=== PATIENT | male | born 1940 | race Two or more races ===

== ENCOUNTER 2018-06-02 09:04 | Emergency (ER) | payer MEDICAID, OTHER ==
[~2018-06-02] VITALS: Ht 170.2 cm; Wt 79.0 kg
[~2018-06-02 09:04] MED LIST: AMLO5TAB16 PO; FAMO-1 PO; Lisinopril PO; MAGN400T6 PO; METF1000 PO
[2018-06-02 09:19] LABS: BASOPHILS % (AUTO) 0.3 % (0-1); EOSINOPHILS # (AUTO) 0.1 X10'3 (0-0.9); EOSINOPHILS % (AUTO) 2.3 % (0-6); HEMATOCRIT 37.8 % (42.0-52.0); HEMOGLOBIN 12.9 g/dl (14.0-17.9); LYMPHOCYTES % (AUTO) 36.4 % (21-51); MEAN CORPUSCULAR HEMOGLOBIN 33.6 PG (27.0-31.0); MEAN CORPUSCULAR HGB CONC 34.1 % (33.0-36.5); MEAN CORPUSCULAR VOLUME 98.7 FL (78-98); MEAN PLATELET VOLUME 7.7 FL (7.4-10.4); MONOCYTES # (AUTO) 0.6 X10'3 (0-0.9); MONOCYTES % (AUTO) 10.7 % (2-12); NEUTROPHILS # (AUTO) 2.7 X10'3 (1.8-7.7); NEUTROPHILS % (AUTO) 50.3 % (42-75); PLATELET COUNT 200 X10'3 (140-440); RED BLOOD COUNT 3.83 X10'6 (4.70-6.10); RED CELL DISTRIBUTION WIDTH 14.7 % (11.5-14.5); WHITE BLOOD COUNT 5.4 X10'3 (4.5-11.0)
[2018-06-02] MEDS ORDERED: ipratropium/albuterol 3ml nebule NEB ONE (09:20)
[2018-06-02 09:40] LABS: ALANINE AMINOTRANSFERASE 53 U/L (12-78); ALBUMIN 3.8 G/DL (3.4-5.0); ALKALINE PHOSPHATASE 66 IU/L (46-116); ANION GAP 8 (8-16); ASPARTATE AMINO TRANSFERASE 50 U/L (10-37); BILIRUBIN,TOTAL 0.4 MG/DL (0.1-1.0); BLOOD UREA NITROGEN 8 MG/DL (7-18); BUN/CREATININE RATIO 9.4 (5.4-32.0); CALCIUM 8.4 MG/DL (8.5-10.1); CHLORIDE 93 MMOL/L (99-107); CREATININE 0.85 MG/DL (0.60-1.10); GLUCOSE 116 MG/DL (70-104); POTASSIUM 4.4 MMOL/L (3.5-5.1); SODIUM 125 MMOL/L (135-145); TOTAL PROTEIN 7.6 G/DL (6.4-8.2); eGFR 87 ML/MIN
[2018-06-02 09:42] LABS: D-DIMER 1.79 MG/L FEU (0-0.50)
[2018-06-02] MEDS ORDERED: normal saline 1000ML IV soln IVB ONE ×2 (09:45)
[2018-06-02] MEDS ORDERED: iohexol 350MG/ML 100ml bottle IV ONE (09:52)
[2018-06-02 09:56] LABS: MAGNESIUM 1.2 MG/DL (1.5-2.4)
[2018-06-02] MEDS: magnesium 1gm/100ml D5W IVPB 100 ML IV SCH ×2 (11:29→12:21)
[2018-06-02] MEDS ORDERED: ALBU8.5H8 IH (11:32)
[2018-06-02 13:08] VITALS: BP 170/93
[2018-06-03] MEDS ORDERED: MESSAGE TO NURSING PO NR (10:00)
== END 2018-06-02 13:10 | disposition home or self-care (01) ==
LOC: ER 09:04
DX: E87.1 Hypo-osmolality and hyponatremia (principal); R06.00 Dyspnea, unspecified; R07.89 Other chest pain; I25.10 Atherosclerotic heart disease of native coronary artery without angina pectoris; E78.00 Pure hypercholesterolemia, unspecified; I10 Essential (primary) hypertension; E11.9 Type 2 diabetes mellitus without complications; Z88.6 Allergy status to analgesic agent; Z79.899 Other long term (current) drug therapy; Z87.891 Personal history of nicotine dependence
CPT/HCPCS: 36415; 71045; 71275; 80053; 83735; 83880; 84145; 84484; 85025; 85379; 93005; 94640; 94760; 96365; 96366; 99285; J7030; Q9967

== ENCOUNTER 2021-09-26 21:30 | Inpatient (IN) | payer MEDICAID ==
[~2021-09-26] VITALS: Ht 162.6 cm; Wt 77.0 kg
[~2021-09-26 21:30] MED LIST changes: +ALBU8.5H17 IH; +MAGN400T56 PO; -MAGN400T6 PO
[2021-09-26 22:12] LABS: BASOPHILS # (AUTO) 0.2 X10'3 (0-0.2); BASOPHILS % (AUTO) 1.9 % (0-1); EOSINOPHILS # (AUTO) 0.1 X10'3 (0-0.9); EOSINOPHILS % (AUTO) 1.2 % (0-6); HEMATOCRIT 27.9 % (42.0-52.0); HEMOGLOBIN 9.1 g/dl (14.0-17.9); LYMPHOCYTES # (AUTO) 2.9 X10'3 (1.1-4.8); LYMPHOCYTES % (AUTO) 33.2 % (21-51); MEAN CORPUSCULAR HGB CONC 32.4 g/dL (33.0-36.5); MEAN CORPUSCULAR VOLUME 89.3 FL (78-98); MEAN PLATELET VOLUME 8.6 FL (7.4-10.4); MONOCYTES # (AUTO) 0.6 X10'3 (0-0.9); MONOCYTES % (AUTO) 6.4 % (2-12); NEUTROPHILS # (AUTO) 5.1 X10'3 (1.8-7.7); NEUTROPHILS % (AUTO) 57.3 % (42-75); PLATELET COUNT 372 X10'3 (140-440); RED BLOOD COUNT 3.13 X10'6 (4.70-6.10); RED CELL DISTRIBUTION WIDTH 16.6 % (11.5-14.5); WHITE BLOOD COUNT 8.9 X10'3 (4.5-11.0)
[2021-09-26 22:16] LABS: ALANINE AMINOTRANSFERASE 25 U/L (12-78); ALBUMIN 3.5 G/DL (3.4-5.0); ALBUMIN/GLOBULIN RATIO 0.8 (1.1-1.5); ALKALINE PHOSPHATASE 69 IU/L (46-116); ANION GAP 8 (8-16); ASPARTATE AMINO TRANSFERASE 24 U/L (10-37); BILIRUBIN,TOTAL 0.3 MG/DL (0.1-1.0); BLOOD UREA NITROGEN 17 MG/DL (7-18); BUN/CREATININE RATIO 12.8 (5.4-32.0); CALCIUM 8.8 MG/DL (8.5-10.1); CHLORIDE 96 MMOL/L (99-107); CREATININE 1.33 MG/DL (0.60-1.10); GLUCOSE 138 MG/DL (70-104); SODIUM 135 MMOL/L (135-145); TOTAL CARBON DIOXIDE 31.3 MMOL/L (24-32); eGFR 52 ML/MIN
[2021-09-26 22:19] LABS: POTASSIUM 4.3 MMOL/L (3.5-5.1)
[2021-09-26] MEDS ORDERED: WARF-55 PO (22:29)
[2021-09-26] MEDS ORDERED: METF-437 PO (22:29)
[2021-09-26] MEDS ORDERED: FURO-149 PO (22:29)
[2021-09-26] MEDS ORDERED: iohexol 350MG/ML 100ml bottle IV ONE (22:37)
[2021-09-26 23:29] LABS: PARTIAL THROMBOPLASTIN TIME 36 SECONDS (22-32)
[2021-09-26] MEDS ORDERED: diltiazem 5mg/ml 5ml inj. IV ONE (23:45)
[2021-09-26] MEDS ORDERED: normal saline 1000ml 1,000 ML IV ONE (23:45)
[2021-09-27] MEDS ORDERED: diltiazem-NS 100mg/100ml 100 ML IV SCH (00:40)
[2021-09-27] MEDS ORDERED: pantoprazole IV 40 MG in dextrose 5%-water 100 ML IV ONE (00:40)
[2021-09-27] MEDS ORDERED: pantoprazole IV 80 MG in normal saline 100ml IV soln 100 ML IV ONE (00:40)
[2021-09-27] MEDS ORDERED: pantoprazole 40 MG vial IV ONE (00:45)
[2021-09-27] MEDS ORDERED: magnesium 2GM in 50ml NS 50 ML IV PRN (01:20)
[2021-09-27] MEDS ORDERED: acetaminophen 325mg tablet PO PRN ×2 (01:20)
[2021-09-27] MEDS ORDERED: glucagon, human recombinant 1mg kit SUBCUT PRN (01:20)
[2021-09-27] MEDS ORDERED: morphine 2 MG/ML inj. syringe IV PRN ×2 (01:20)
[2021-09-27] MEDS ORDERED: MESSAGE TO PHARMACY PO ONE (01:20)
[2021-09-27] MEDS ORDERED: dextrose 50%-water 50ml dispensing syringe IV PRN ×2 (01:20)
[2021-09-27] MEDS ORDERED: potassium Cl 20 mEq SR tablet PO PRN ×2 (01:20)
[2021-09-27] MEDS ORDERED: potassium CL 10mEq/100ml bag 100 ML IV PRN (01:20)
[2021-09-27] MEDS ORDERED: ondansetron/PF 4mg/2ml inj IV PRN (01:20)
[2021-09-27] MEDS ORDERED: HYDROcodone/acetaminophen 5mg/325mg tablet PO PRN (01:20)
[2021-09-27] MEDS ORDERED: dextrose ORAL solution 15 GM/59 ML bottle PO PRN ×2 (01:20)
[2021-09-27] MEDS ORDERED: magnesium 4gm in 100ml NS 100 ML IV PRN (01:20)
[2021-09-27] MEDS ORDERED: mag hydrox/Alum hydrox/simeth 30ml oral suspension PO PRN (01:20)
[2021-09-27] MEDS ORDERED: magnesium hydroxide 30ml (MOM) UD suspension PO PRN (01:20)
[2021-09-27] MEDS ORDERED: insulin Lispro (HumaLOG) vial - multi-dose SQ SCH (01:20)
--- NOTE | 2021-09-27 01:51 | NUR ---
Rosas sofia in [facility] - 09/27/21 at 0152 by ELICIA case report received from [facility]. case number is [id number]
[2021-09-27] MEDS: pantoprazole IV 40 MG in dextrose 5%-water 100 ML IV SCH ×2 (02:01→02:35)
[2021-09-27 03:49] LABS: HEMOGLOBIN A1C 7.7 % (4.5-6.2)
--- NOTE | 2021-09-27 07:34 | NUR ---
called [facility] to give report nurse finch is busy with other patient and will call me back.notified charge nurse lachelle.
[2021-09-27 07:58] LABS: MAGNESIUM 1.1 MG/DL (1.5-2.4); POTASSIUM 3.8 MMOL/L (3.5-5.1)
[2021-09-27 08:00] VITALS: BP 106/64
[2021-09-27] MEDS: K and/or MAG REPLACEMENT MC SCH ×2 (08:00→20:00)
[2021-09-27] MEDS ORDERED: lisinopril 20mg tablet PO SCH (08:00)
[2021-09-27] MEDS: docusate sod 100mg capsule PO SCH ×2 (08:00→20:20)
[2021-09-27] MEDS ORDERED: LISI2.5T14 PO (08:04)
[2021-09-27] MEDS ORDERED: lisinopril 2.5mg tablet PO SCH (08:05)
[2021-09-27] MEDS ORDERED: furosemide 40mg/4ml inj IV ONE (08:40)
[2021-09-27] MEDS ORDERED: diltiazem CD 180mg cap (once-daily) PO SCH (08:45)
[2021-09-27] MEDS: lisinopril 2.5mg tablet PO SCH (09:16)
[2021-09-27] MEDS: magnesium Cl slow-release 64mg tablet PO PRN (09:17)
[2021-09-27 11:00] VITALS: BP 90/42
[2021-09-27] MEDS ORDERED: metoprolol tartrate 1mg/ml inj IV ONE (13:35)
[2021-09-27] MEDS ORDERED: metoprolol succinate 25mg (24-HOUR) SR. Tablet PO ONE (13:35)
[2021-09-27] MEDS ORDERED: WARF1TAB83 PO (14:24)
[2021-09-27 15:00] VITALS: BP 102/62
[2021-09-27] MEDS ORDERED: thiamine 100mg/ml 2ml inj. IV ONE (15:30)
[2021-09-27] MEDS ORDERED: folic acid 1mg/0.2ml inj IV ONE (15:30)
[2021-09-27] MEDS ORDERED: LORazepam 1 MG tablet PO PRN (15:30)
[2021-09-27] MEDS ORDERED: LORazepam 2 mg/ml vial IV PRN (15:30)
[2021-09-27] MEDS: folic acid 1mg tablet PO SCH (15:38)
[2021-09-27] MEDS: thiamine 100mg tablet PO SCH (17:50)
[2021-09-27] MEDS: multivitamins, therapeutics tablet PO SCH (17:50)
[2021-09-27 18:00] VITALS: BP 91/52
--- NOTE | 2021-09-27 18:30 | NUR ---
Rounding Pt in bed eating dinner assisted by family member who is presents at bed side. Pt and family denied any complaints at this time. Vital signs stable on monitor. Plan of care verbalized to pt and family.
[2021-09-27] MEDS: furosemide 40mg/4ml inj IV SCH (20:20)
[2021-09-27] MEDS ORDERED: warfarin 1mg tablet PO ONE (21:00)
[2021-09-27] MEDS: insulin glargine (Lantus) pen - multi-dose SQ SCH (21:00)
[2021-09-27] MEDS ORDERED: warfarin 2.5mg tablet PO SCH (21:00)
[2021-09-27 22:00] VITALS: BP 90/43
[2021-09-27 23:59] VITALS: BP 102/70
[2021-09-28 02:00] VITALS: BP 91/54
[2021-09-28 06:00] VITALS: BP 95/47
[2021-09-28 06:02] LABS: BASOPHILS % (AUTO) 0.4 % (0-1); EOSINOPHILS # (AUTO) 0.1 X10'3 (0-0.9); EOSINOPHILS % (AUTO) 0.9 % (0-6); HEMATOCRIT 23.8 % (42.0-52.0); LYMPHOCYTES # (AUTO) 2.7 X10'3 (1.1-4.8); LYMPHOCYTES % (AUTO) 36.3 % (21-51); MEAN CORPUSCULAR HEMOGLOBIN 29.6 PG (27.0-31.0); MEAN CORPUSCULAR HGB CONC 33.7 g/dL (33.0-36.5); MEAN CORPUSCULAR VOLUME 87.8 FL (78-98); MEAN PLATELET VOLUME 8.2 FL (7.4-10.4); MONOCYTES # (AUTO) 0.7 X10'3 (0-0.9); NEUTROPHILS # (AUTO) 3.9 X10'3 (1.8-7.7); NEUTROPHILS % (AUTO) 52.4 % (42-75); PLATELET COUNT 286 X10'3 (140-440); RED BLOOD COUNT 2.71 X10'6 (4.70-6.10); RED CELL DISTRIBUTION WIDTH 16.9 % (11.5-14.5); WHITE BLOOD COUNT 7.5 X10'3 (4.5-11.0)
[2021-09-28 06:11] LABS: ALANINE AMINOTRANSFERASE 68 U/L (12-78); ALBUMIN 3.1 G/DL (3.4-5.0); ALBUMIN/GLOBULIN RATIO 0.8 (1.1-1.5); ALKALINE PHOSPHATASE 63 IU/L (46-116); AMYLASE 38 U/L (25-115); ANION GAP 4 (8-16); ASPARTATE AMINO TRANSFERASE 120 U/L (10-37); BILIRUBIN,TOTAL 0.5 MG/DL (0.1-1.0); BLOOD UREA NITROGEN 21 MG/DL (7-18); BUN/CREATININE RATIO 13.8 (5.4-32.0); CALCIUM 8.4 MG/DL (8.5-10.1); CHLORIDE 100 MMOL/L (99-107); CREATININE 1.52 MG/DL (0.60-1.10); GLUCOSE 126 MG/DL (70-104); LIPASE 69 U/L (73-393); MAGNESIUM 1.1 MG/DL (1.5-2.4); PHOSPHORUS 4.1 MG/DL (2.3-4.5); POTASSIUM 4.2 MMOL/L (3.5-5.1); SODIUM 136 MMOL/L (135-145); TOTAL CARBON DIOXIDE 32.4 MMOL/L (24-32); TOTAL PROTEIN 6.8 G/DL (6.4-8.2); eGFR 44 ML/MIN
--- NOTE | 2021-09-28 06:40 | NUR ---
Problems reprioritized. Patient report given, questions answered & plan of care reviewed with ADY Duque. Electrodes replaced and call bran given to pt. Resting comfortably in bed.
[2021-09-28] MEDS: furosemide 40mg/4ml inj IV SCH ×2 (08:00→20:44)
[2021-09-28] MEDS: K and/or MAG REPLACEMENT MC SCH ×2 (08:00→15:13)
[2021-09-28] MEDS ORDERED: metoprolol succinate 25mg (24-HOUR) SR. Tablet PO SCH (08:00)
[2021-09-28] MEDS: thiamine 100mg tablet PO SCH (08:00)
[2021-09-28] MEDS: docusate sod 100mg capsule PO SCH ×2 (08:00→20:44)
[2021-09-28] MEDS: folic acid 1mg tablet PO SCH (08:00)
[2021-09-28] MEDS: lisinopril 2.5mg tablet PO SCH (08:00)
--- NOTE | 2021-09-28 09:38 | NUR ---
Diabetes consult: Noted A1C 7.7 fair control and appropriate for age. DM ed not indicated at this time. Addendum: 09/28/21 at [address] Amended: Links added.
[2021-09-28 10:00] VITALS: BP 121/63
[2021-09-28] MEDS: multivitamins, therapeutics tablet PO SCH (10:07)
[2021-09-28 14:00] VITALS: BP 124/75
--- NOTE | 2021-09-28 15:07 | NUR ---
WOUND INFECTION EDUCATION PROVIDED BY WOUND CARE 1. Patient instructed to call their primary doctor, or go the ED immediately if any of the following symptoms occur: * Increased pain in wound * Increase in drainage from the wound * Redness in the skin surrounding the wound * Warmth in the skin surrounding the wound * Bleeding from the wound * Temperature of 101 or greater 2. If any of these occur while in the hospital tell a nurse immediately. PRESSURE ULCER EDUCATION: DEFINITION: A pressure ulcer is an area of skin that breaks down when you stay in one position too long. The constant pressure against the skin reduces the blood flow to that area and the affected tissue dies. CAUSES: "Being bedridden or in a wheelchair "Fragile skin "Having a chronic condition, such as diabetes or vascular disease "Inability to move certain parts of your body without assistance "Older age "Incontinence of urine or stool SYMPTOMS: "A reddened area that DOES NOT turn white when pressed on - this can be the beginning of a pressure ulcer "A blister, deep sore or a crater - these can be advanced pressure ulcers FIRST AID: "Relieve the pressure on this area "Keep the area clean and dry "Call your primary doctor if you see any of the above symptoms "DO NOT massage the area "DO NOT use a donut shaped or ring shaped pillow- these actually interfere with the blood flow and cause complications PREVENTION: "Check for pressure ulcers everyday "Change position at least every two hours to relieve pressure "Use items that help relieve pressure- pillows, sheepskin, foam padding, and powders. "Keep skin clean and dry "Eat healthy well balanced meals "Exercise daily IF YOU SEE ANY OF THESE SYMPTOMS WHILE IN THE HOSPITAL - TELL YOUR NURSE IMMEDIATELY. IF YOU SEE ANY OF THESE SYMPTOMS WHILE AT HOME OR HAVE ANY QUESTIONS OR CONCERNS ABOUT PRESSURE ULCERS - CALL YOUR PRIMARY DOCTOR IMMEDIATELY. Addendum: 09/28/21 at 1507 by Marcella Boyce RN Amended: Links added.
[2021-09-28] MEDS: magnesium Cl slow-release 64mg tablet PO PRN (15:14)
[2021-09-28 18:00] VITALS: BP 119/76
--- NOTE | 2021-09-28 18:45 | NUR ---
Patient in room MED 317. I have received report from Diana GARSIA and had the opportunity to ask questions and assume patient care.
[2021-09-28] MEDS: insulin glargine (Lantus) pen - multi-dose SQ SCH (20:45)
[2021-09-28] MEDS ORDERED: warfarin 1mg tablet PO ONE (21:00)
[2021-09-28 22:00] VITALS: BP 126/78
[2021-09-29 02:00] VITALS: BP 133/89
--- NOTE | 2021-09-29 06:26 | NUR ---
Problems reprioritized. Patient report given, questions answered & plan of care reviewed with Angelica GARSIA.
[2021-09-29 06:28] LABS: BASOPHILS % (AUTO) 0.2 % (0-1); EOSINOPHILS # (AUTO) 0.1 X10'3 (0-0.9); EOSINOPHILS % (AUTO) 1.4 % (0-6); HEMATOCRIT 25.1 % (42.0-52.0); HEMOGLOBIN 8.5 g/dl (14.0-17.9); LYMPHOCYTES # (AUTO) 1.8 X10'3 (1.1-4.8); LYMPHOCYTES % (AUTO) 22.3 % (21-51); MEAN CORPUSCULAR HEMOGLOBIN 29.5 PG (27.0-31.0); MEAN CORPUSCULAR HGB CONC 33.9 g/dL (33.0-36.5); MEAN PLATELET VOLUME 8.3 FL (7.4-10.4); MONOCYTES # (AUTO) 0.8 X10'3 (0-0.9); MONOCYTES % (AUTO) 10.2 % (2-12); NEUTROPHILS # (AUTO) 5.3 X10'3 (1.8-7.7); NEUTROPHILS % (AUTO) 65.9 % (42-75); PLATELET COUNT 328 X10'3 (140-440); RED BLOOD COUNT 2.89 X10'6 (4.70-6.10); RED CELL DISTRIBUTION WIDTH 16.8 % (11.5-14.5); WHITE BLOOD COUNT 8.1 X10'3 (4.5-11.0)
--- NOTE | 2021-09-29 06:43 | NUR ---
Patient in room MED 317. I have received report from Cassia GARSIA and had the opportunity to ask questions and assume patient care.
[2021-09-29 06:44] VITALS: BP 130/78
[2021-09-29 06:58] LABS: ANION GAP 8 (8-16); BLOOD UREA NITROGEN 17 MG/DL (7-18); BUN/CREATININE RATIO 14.5 (5.4-32.0); CHLORIDE 98 MMOL/L (99-107); CREATININE 1.17 MG/DL (0.60-1.10); GLUCOSE 160 MG/DL (70-104); POTASSIUM 3.2 MMOL/L (3.5-5.1); SODIUM 136 MMOL/L (135-145); TOTAL CARBON DIOXIDE 30.1 MMOL/L (24-32)
[2021-09-29 06:59] LABS: ALANINE AMINOTRANSFERASE 126 U/L (12-78); ALBUMIN 3.1 G/DL (3.4-5.0); ALBUMIN/GLOBULIN RATIO 0.8 (1.1-1.5); ALKALINE PHOSPHATASE 68 IU/L (46-116); AMYLASE 41 U/L (25-115); ASPARTATE AMINO TRANSFERASE 137 U/L (10-37); BILIRUBIN,TOTAL 0.5 MG/DL (0.1-1.0); CALCIUM 8.4 MG/DL (8.5-10.1); LIPASE 64 U/L (73-393); MAGNESIUM 1.1 MG/DL (1.5-2.4); PHOSPHORUS 3.4 MG/DL (2.3-4.5); TOTAL PROTEIN 7.1 G/DL (6.4-8.2); eGFR 60 ML/MIN
[2021-09-29] MEDS: furosemide 40mg/4ml inj IV SCH (07:20)
[2021-09-29] MEDS: docusate sod 100mg capsule PO SCH (07:20)
[2021-09-29] MEDS: thiamine 100mg tablet PO SCH (07:21)
[2021-09-29] MEDS: multivitamins, therapeutics tablet PO SCH (07:21)
[2021-09-29] MEDS: lisinopril 2.5mg tablet PO SCH (07:22)
[2021-09-29] MEDS: folic acid 1mg tablet PO SCH (07:22)
[2021-09-29] MEDS: K and/or MAG REPLACEMENT MC SCH (08:00)
[2021-09-29] MEDS ORDERED: metoprolol succinate 25mg (24-HOUR) SR. Tablet PO SCH (08:00)
[2021-09-29] MEDS ORDERED: FOLI0.4T6 PO (09:21)
[2021-09-29] MEDS ORDERED: THIA50TA10 PO (09:21)
[2021-09-29] MEDS ORDERED: MULT-25 PO (09:21)
[2021-09-29] MEDS ORDERED: METO100T7 PO (09:21)
[2021-09-29] MEDS ORDERED: POTA-207 PO (09:23)
[2021-09-29 11:00] VITALS: BP 115/76
--- NOTE | 2021-09-29 15:15 | NUR ---
Pt with D/C orders, instructions given to daughter over phone, daughter will be in tosign papers and transport patient home. Pt in no distress, IV removed with canula intact.
--- NOTE | 2021-09-29 16:07 | NUR ---
Pt left via wheelchair, daughter, pt in no distress
[2021-09-29] MEDS ORDERED: warfarin 1mg tablet PO ONE (21:00)
== END 2021-09-29 15:55 | disposition home or self-care (01) | DRG 201 ==
LOC: ER 21:31 → UNDOADMIN 09-27 01:24 → ED HOLD 09-27 01:24 → MED 3N 09-27 08:10
PROVIDERS: ADMIT Internal Medicine; ATTEND Family Medicine
PROC: B32T1ZZ Computerized Tomography (CT Scan) of Left Pulmonary Artery using Low Osmolar Contrast (ICD-10-PCS; principal; 2021-09-26)
PROC: B3201ZZ Computerized Tomography (CT Scan) of Thoracic Aorta using Low Osmolar Contrast (ICD-10-PCS; 2021-09-26)
PROC: B32S1ZZ Computerized Tomography (CT Scan) of Right Pulmonary Artery using Low Osmolar Contrast (ICD-10-PCS; 2021-09-26)
DX: I48.0 Paroxysmal atrial fibrillation (principal); I50.21 Acute systolic (congestive) heart failure; E11.22 Type 2 diabetes mellitus with diabetic chronic kidney disease; Z95.1 Presence of aortocoronary bypass graft; I13.0 Hypertensive heart and chronic kidney disease with heart failure and stage 1 through stage 4 chronic kidney disease, or unspecified chronic kidney disease; N18.30 Chronic kidney disease, stage 3 unspecified; E78.00 Pure hypercholesterolemia, unspecified; F10.20 Alcohol dependence, uncomplicated; I25.10 Atherosclerotic heart disease of native coronary artery without angina pectoris; K92.2 Gastrointestinal hemorrhage, unspecified; Z20.822 Contact with and (suspected) exposure to COVID-19; Z87.891 Personal history of nicotine dependence; Z79.01 Long term (current) use of anticoagulants; Z79.899 Other long term (current) drug therapy
CPT/HCPCS: 36415; 71045; 71275; 80053; 82150; 82948; 83036; 83690; 83735; 83880; 84100; 84132; 84484; 85025; 85610; 85730; 87635; 93005; 93306; 99291; C9113; G0378; J1815; J1940; J3490; J7030; J7060; Q9967

== ENCOUNTER 2021-11-10 23:02 | Inpatient (IN) | payer MEDICAID ==
[~2021-11-10] VITALS: Ht 162.6 cm; Wt 85.2 kg
[~2021-11-10 23:02] MED LIST changes: -ALBU8.5H17 IH; -AMLO5TAB16 PO; +ASPI-1265 PO; +DILT180C87 PO; -FAMO-1 PO; +FOLI0.4T6 PO; +FURO-149 PO; +FURO-150 PO; +LISI2.5T14 PO; +LOP12.5T PO; -Lisinopril PO; -MAGN400T56 PO; +METF-437 PO; -METF1000 PO; +METO-467 PO; +WARF1TAB83 PO
--- NOTE | 2021-11-10 23:44 | NUR ---
PATIENT SEEN BY HIS REGULAR MD AT [facility]. HE REPORTED LEFT ARM DISCOMFORT, THE DOCTOR TOLD HIM TO COME TO ED IF WORSE. PATIENT EPIGASTRIC DISCOMFORT SINCE AROUND AROUND 0900 HOURS TODAY. PATIENT STATED LEFT ARM PAIN BEGAN AROUND 2200 HOURS TWO NIGHTS AGO. NAUSEA IS PRESNT. HX: A-FIB AND CORONARY STENTS.
[2021-11-11 01:15] LABS: BASOPHILS % (AUTO) 0.4 % (0-1); EOSINOPHILS % (AUTO) 0.1 % (0-6); HEMATOCRIT 26.6 % (42.0-52.0); HEMOGLOBIN 8.6 g/dl (14.0-17.9); LYMPHOCYTES # (AUTO) 1.5 X10'3 (1.1-4.8); LYMPHOCYTES % (AUTO) 21.6 % (21-51); MEAN CORPUSCULAR HEMOGLOBIN 26.7 PG (27.0-31.0); MEAN CORPUSCULAR HGB CONC 32.4 g/dL (33.0-36.5); MEAN CORPUSCULAR VOLUME 82.6 FL (78-98); MEAN PLATELET VOLUME 8.8 FL (7.4-10.4); MONOCYTES # (AUTO) 0.5 X10'3 (0-0.9); MONOCYTES % (AUTO) 7.5 % (2-12); NEUTROPHILS % (AUTO) 70.4 % (42-75); PLATELET COUNT 272 X10'3 (140-440); RED BLOOD COUNT 3.22 X10'6 (4.70-6.10); RED CELL DISTRIBUTION WIDTH 20.1 % (11.5-14.5); WHITE BLOOD COUNT 7.1 X10'3 (4.5-11.0)
[2021-11-11 01:36] LABS: CHLORIDE 98 MMOL/L (99-107); GLUCOSE 129 MG/DL (70-104); SODIUM 132 MMOL/L (135-145); TOTAL CARBON DIOXIDE 24.1 MMOL/L (24-32)
[2021-11-11 01:37] LABS: ALANINE AMINOTRANSFERASE 14 U/L (12-78); ALBUMIN 3.3 G/DL (3.4-5.0); ALBUMIN/GLOBULIN RATIO 0.8 (1.1-1.5); ALKALINE PHOSPHATASE 71 IU/L (46-116); ANION GAP 10 (8-16); ASPARTATE AMINO TRANSFERASE 21 U/L (10-37); BILIRUBIN,TOTAL 0.7 MG/DL (0.1-1.0); BLOOD UREA NITROGEN 34 MG/DL (7-18); BUN/CREATININE RATIO 19.1 (5.4-32.0); CALCIUM 8.5 MG/DL (8.5-10.1); CREATININE 1.78 MG/DL (0.60-1.10); TOTAL PROTEIN 7.6 G/DL (6.4-8.2); eGFR 37 ML/MIN
[2021-11-11] MEDS ORDERED: dextrose 50%-water 50ml dispensing syringe IV ONE (01:45)
[2021-11-11] MEDS ORDERED: sodium polystyrene sulfonate 15gm/60ml oral suspension PO ONE (01:45)
[2021-11-11] MEDS ORDERED: CALCIUM GLUC 1gm/50ml NACL,iso 50 ML IV PRN (01:45)
[2021-11-11] MEDS ORDERED: insulin regular, human 10 units/0.1 ml syringe IV ONE (01:45)
[2021-11-11] MEDS ORDERED: normal saline 1000ML IV soln IVB ONE (01:45)
[2021-11-11 01:59] LABS: ANISOCYTOSIS 3+; PLATELET ESTIMATE NORMAL
[2021-11-11 02:00] LABS: MICROCYTOSIS FEW; POLYCHROMASIA 1+; TEAR DROP CELLS FEW
[2021-11-11 02:02] LABS: TARGET CELLS FEW
[2021-11-11 02:11] LABS: D-DIMER 1.69 MG/L FEU (0-0.50)
[2021-11-11] MEDS ORDERED: magnesium hydroxide 30ml (MOM) UD suspension PO PRN (02:15)
[2021-11-11] MEDS ORDERED: mag hydrox/Alum hydrox/simeth 30ml oral suspension PO PRN (02:15)
[2021-11-11] MEDS ORDERED: ondansetron/PF 4mg/2ml inj IV PRN (02:15)
[2021-11-11] MEDS ORDERED: acetaminophen 325mg tablet PO PRN (02:15)
[2021-11-11] MEDS ORDERED: MESSAGE TO PHARMACY PO ONE (02:20)
[2021-11-11] MEDS ORDERED: dextrose ORAL solution 15 GM/59 ML bottle PO PRN ×2 (02:20)
[2021-11-11] MEDS ORDERED: dextrose 50%-water 50ml dispensing syringe IV PRN ×2 (02:20)
[2021-11-11] MEDS ORDERED: glucagon, human recombinant 1mg kit SUBCUT PRN (02:20)
[2021-11-11] MEDS ORDERED: insulin Lispro (HumaLOG) vial - multi-dose SQ SCH (02:20)
[2021-11-11] MEDS ORDERED: METO-395 PO (02:39)
--- NOTE | 2021-11-11 06:19 | NUR ---
pt given kayexalate and has had one episode of diarrhea. glucose is 79. no sob noted at this time.
--- NOTE | 2021-11-11 07:09 | NUR ---
Patient in room ED 9. I have received report from Wesley GARSIA and had the opportunity to ask questions and assume patient care.
[2021-11-11] MEDS: metoprolol succinate 25mg (24-HOUR) SR. Tablet PO SCH (08:45)
[2021-11-11] MEDS: diltiazem CD 180mg cap (once-daily) PO SCH (08:45)
[2021-11-11] MEDS: docusate sod 100mg capsule PO SCH ×2 (08:45→21:34)
[2021-11-11] MEDS: aspirin 81mg tab.chew PO SCH (08:45)
[2021-11-11] MEDS: furosemide 40mg tablet PO SCH (08:46)
[2021-11-11] MEDS: folic acid 0.4mg tablet PO SCH (10:53)
[2021-11-11] MEDS: furosemide 20MG tablet PO SCH (14:00)
--- NOTE | 2021-11-11 14:45 | NUR ---
Diabetes Consult: Noted A1C 7.7 09/26/21 and pt takes metformin at home per EMR. DM fair control and appropriate for age per ADA gridlines. DM ed not indicated at this time, will continue to monitor. Addendum: 11/11/21 at [address] Amended: Links added.
--- NOTE | 2021-11-11 14:46 | NUR ---
Paged Dr. Roach regarding hypotension and bradycardia. PAGER ID: [phone] MESSAGE: [phone], Ag Gilliam. Patients BP is 83/40 on L arm and 75/46 on R and HR starting trending down from 90's to now 47. Started at 1330. Patient is drowsy but no other complaints. [facility] 4638.
[2021-11-11 16:01] LABS: ABG BASE EXCESS -3.8 mmol/L (-2.0-2.0); ABG HCO3 18.2 mmol/L (22.0-26.0); ABG PCO2 (T) 23.2 mmHg (35.0-48.0); ABG PO2 (T) 75.4 mmHg (75.0-100.0); FCOHb 0.4 % (0.0-3.9); FLOW 2 L/min; FMetHb 0.1 % (0.0-1.5); FO2Hb 94.5 % (94-97); TOTAL HEMOGLOBIN 8.8 G/dl (14.0-18.0)
[2021-11-11 16:09] LABS: ALANINE AMINOTRANSFERASE 15 U/L (12-78); ALBUMIN/GLOBULIN RATIO 0.8 (1.1-1.5); ALKALINE PHOSPHATASE 64 IU/L (46-116); ANION GAP 15 (8-16); ASPARTATE AMINO TRANSFERASE 19 U/L (10-37); BILIRUBIN,TOTAL 0.7 MG/DL (0.1-1.0); BLOOD UREA NITROGEN 36 MG/DL (7-18); BUN/CREATININE RATIO 18.7 (5.4-32.0); CALCIUM 8.5 MG/DL (8.5-10.1); CHLORIDE 99 MMOL/L (99-107); CREATININE 1.93 MG/DL (0.60-1.10); POTASSIUM 4.9 MMOL/L (3.5-5.1); SODIUM 134 MMOL/L (135-145); TOTAL CARBON DIOXIDE 20.2 MMOL/L (24-32); TOTAL PROTEIN 6.6 G/DL (6.4-8.2); eGFR 34 ML/MIN
[2021-11-11] MEDS: DOPamine 400mg/D5W 250ml 250 ML IV SCH ×2 (16:10→16:25)
[2021-11-11 16:12] LABS: GLUCOSE 152 MG/DL (70-104)
[2021-11-11] MEDS ORDERED: normal saline 1000ml 1,000 ML IV ONE (16:25)
[2021-11-11 18:00] VITALS: BP 130/67
--- NOTE | 2021-11-11 18:38 | NUR ---
Patient started to decline around 1500, the nurse aid was obtaining vitals and the patient was hypotensive and bradycardic. We took vitals multiple times and patients mentation was altered. I paged Dr. Roach and we decided to call a rapid. After a few hours patient was stabilized to transfer to ICU. We did resolve the hypotension and bradycardia, but the ICU charge nurse and doctor felt it was safe to continue to monitor in ICU.
[2021-11-11 21:00] VITALS: BP 130/80
[2021-11-11 22:00] VITALS: BP 129/84
[2021-11-11 22:24] LABS: BASOPHILS % (AUTO) 0.5 % (0-1); EOSINOPHILS % (AUTO) 0.1 % (0-6); HEMATOCRIT 23.8 % (42.0-52.0); HEMOGLOBIN 7.6 g/dl (14.0-17.9); LYMPHOCYTES # (AUTO) 1.7 X10'3 (1.1-4.8); LYMPHOCYTES % (AUTO) 20.8 % (21-51); MEAN CORPUSCULAR HEMOGLOBIN 26.5 PG (27.0-31.0); MEAN CORPUSCULAR HGB CONC 31.8 g/dL (33.0-36.5); MEAN CORPUSCULAR VOLUME 83.2 FL (78-98); MEAN PLATELET VOLUME 8.5 FL (7.4-10.4); MONOCYTES # (AUTO) 0.9 X10'3 (0-0.9); MONOCYTES % (AUTO) 10.7 % (2-12); NEUTROPHILS # (AUTO) 5.6 X10'3 (1.8-7.7); NEUTROPHILS % (AUTO) 67.9 % (42-75); PLATELET COUNT 238 X10'3 (140-440); RED BLOOD COUNT 2.86 X10'6 (4.70-6.10); RED CELL DISTRIBUTION WIDTH 20.1 % (11.5-14.5); WHITE BLOOD COUNT 8.3 X10'3 (4.5-11.0)
[2021-11-11 22:35] LABS: ALANINE AMINOTRANSFERASE 18 U/L (12-78); ALBUMIN 2.9 G/DL (3.4-5.0); ALBUMIN/GLOBULIN RATIO 0.8 (1.1-1.5); ALKALINE PHOSPHATASE 65 IU/L (46-116); ANION GAP 9 (8-16); ASPARTATE AMINO TRANSFERASE 23 U/L (10-37); BILIRUBIN,TOTAL 0.6 MG/DL (0.1-1.0); BLOOD UREA NITROGEN 34 MG/DL (7-18); BUN/CREATININE RATIO 19.2 (5.4-32.0); CHLORIDE 102 MMOL/L (99-107); CREATININE 1.77 MG/DL (0.60-1.10); MAGNESIUM 1.2 MG/DL (1.5-2.4); PHOSPHORUS 4.8 MG/DL (2.3-4.5); POTASSIUM 4.3 MMOL/L (3.5-5.1); SODIUM 135 MMOL/L (135-145); TOTAL CARBON DIOXIDE 24.1 MMOL/L (24-32); TOTAL PROTEIN 6.6 G/DL (6.4-8.2); eGFR 37 ML/MIN
[2021-11-11 22:39] LABS: APTT 37 SECONDS (22-32); D-DIMER 1.69 MG/L FEU (0-0.50)
[2021-11-11 23:00] VITALS: BP 138/71
[2021-11-11 23:16] LABS: GLUCOSE 148 MG/DL (70-104)
[2021-11-12] VITALS (28 sets, daily range): BP systolic 85–153; BP diastolic 43–99
[2021-11-12 03:12] LABS: ANISOCYTOSIS 3+; PLATELET ESTIMATE NORMAL
[2021-11-12 03:14] LABS: TARGET CELLS FEW
[2021-11-12 03:15] LABS: POLYCHROMASIA FEW; SCHISTOCYTES FEW
[2021-11-12 03:36] LABS: BASOPHILS % (AUTO) 0.3 % (0-1); EOSINOPHILS % (AUTO) 0.2 % (0-6); HEMATOCRIT 24.1 % (42.0-52.0); HEMOGLOBIN 7.8 g/dl (14.0-17.9); LYMPHOCYTES # (AUTO) 2.1 X10'3 (1.1-4.8); LYMPHOCYTES % (AUTO) 23.2 % (21-51); MEAN CORPUSCULAR HEMOGLOBIN 26.9 PG (27.0-31.0); MEAN CORPUSCULAR HGB CONC 32.4 g/dL (33.0-36.5); MEAN CORPUSCULAR VOLUME 82.9 FL (78-98); MEAN PLATELET VOLUME 9.1 FL (7.4-10.4); MONOCYTES # (AUTO) 0.8 X10'3 (0-0.9); MONOCYTES % (AUTO) 8.4 % (2-12); NEUTROPHILS # (AUTO) 6.3 X10'3 (1.8-7.7); NEUTROPHILS % (AUTO) 67.9 % (42-75); PLATELET COUNT 254 X10'3 (140-440); RED CELL DISTRIBUTION WIDTH 20.3 % (11.5-14.5); WHITE BLOOD COUNT 9.2 X10'3 (4.5-11.0)
--- NOTE | 2021-11-12 03:50 | NUR ---
Pt is alert, oriented and will turn independently in the bed. Pt is sitting over the side of the bed at this time. Vitals have been stable. Pt is on 3L per nasal cannula and has a slight wheeze. Oxygen saturations have been high ninety to one-hundred. Pt has been Afib on the monitor at a rate of approximately eighty. Respirations have been even and unlabored. The CVC in the right groin has been oozing blood, pressure applied and dressing changed; flushes and draws well. No oozing noted at this time. Blood glucose have been stable. Urine output has been adequate this shift. Pt remains off vasoactive medications. Morning labs have been drawn. Will continue to assess and intervene as appropriate.
[2021-11-12 03:52] LABS: ALANINE AMINOTRANSFERASE 17 U/L (12-78); ALBUMIN 2.9 G/DL (3.4-5.0); ALBUMIN/GLOBULIN RATIO 0.7 (1.1-1.5); ALKALINE PHOSPHATASE 64 IU/L (46-116); ANION GAP 9 (8-16); ASPARTATE AMINO TRANSFERASE 26 U/L (10-37); BILIRUBIN,TOTAL 0.6 MG/DL (0.1-1.0); BLOOD UREA NITROGEN 37 MG/DL (7-18); CALCIUM 7.9 MG/DL (8.5-10.1); CHLORIDE 102 MMOL/L (99-107); CREATININE 1.68 MG/DL (0.60-1.10); GLUCOSE 128 MG/DL (70-104); POTASSIUM 4.2 MMOL/L (3.5-5.1); SODIUM 136 MMOL/L (135-145); TOTAL CARBON DIOXIDE 25.2 MMOL/L (24-32); TOTAL PROTEIN 7.1 G/DL (6.4-8.2); eGFR 40 ML/MIN
[2021-11-12 04:50] LABS: ANISOCYTOSIS 3+; PLATELET ESTIMATE NORMAL
[2021-11-12 04:51] LABS: POLYCHROMASIA FEW
[2021-11-12 04:52] LABS: ELLIPTOCYTES FEW; TARGET CELLS FEW
[2021-11-12] MEDS: aspirin 81mg tab.chew PO SCH ×2 (08:00→08:28)
[2021-11-12] MEDS: folic acid 0.4mg tablet PO SCH (08:28)
[2021-11-12] MEDS: docusate sod 100mg capsule PO SCH ×2 (08:28→20:00)
[2021-11-12] MEDS: metoprolol succinate 25mg (24-HOUR) SR. Tablet PO SCH (08:28)
[2021-11-12] MEDS: furosemide 40mg tablet PO SCH (08:28)
[2021-11-12] MEDS: diltiazem CD 180mg cap (once-daily) PO SCH (08:30)
--- NOTE | 2021-11-12 08:40 | NUR ---
AM Aspirin held per
[2021-11-12] MEDS: furosemide 20MG tablet PO SCH (13:33)
--- NOTE | 2021-11-12 14:00 | NUR ---
Notified MD Navas as well as felt cementer that patient is bradycardic into the 40's at this time as well as hypotensive. Plan to start a dopamine drip, draw serial troponins and to get a stat EKG. Patient remains alert and oriented. Will continue to monitor and intervene as appropriate.
[2021-11-12] MEDS ORDERED: DOPamine 400mg/D5W 250ml 250 ML IV ONE (14:30)
[2021-11-12] MEDS ORDERED: DOPamine 400mg/D5W 250ml 250 ML IV SCH (14:40)
[2021-11-12] MEDS: DOPamine 400mg/D5W 250ml 250 ML IV SCH (14:55)
--- NOTE | 2021-11-12 15:46 | NUR ---
Discussing POC with MD Navas at this time, plan to discontinue home beta vivek and calcium channel vivek. Will reassess next am.
[2021-11-13] VITALS (33 sets, daily range): BP systolic 105–160; BP diastolic 47–89
[2021-11-13 02:34] LABS: BASOPHILS % (AUTO) 0.3 % (0-1); EOSINOPHILS # (AUTO) 0.1 X10'3 (0-0.9); EOSINOPHILS % (AUTO) 1.5 % (0-6); HEMATOCRIT 23.4 % (42.0-52.0); HEMOGLOBIN 7.5 g/dl (14.0-17.9); LYMPHOCYTES # (AUTO) 1.9 X10'3 (1.1-4.8); LYMPHOCYTES % (AUTO) 26.6 % (21-51); MEAN CORPUSCULAR HEMOGLOBIN 26.4 PG (27.0-31.0); MEAN CORPUSCULAR HGB CONC 32.2 g/dL (33.0-36.5); MEAN CORPUSCULAR VOLUME 82.2 FL (78-98); MEAN PLATELET VOLUME 8.4 FL (7.4-10.4); MONOCYTES # (AUTO) 0.9 X10'3 (0-0.9); MONOCYTES % (AUTO) 12.4 % (2-12); NEUTROPHILS # (AUTO) 4.1 X10'3 (1.8-7.7); NEUTROPHILS % (AUTO) 59.2 % (42-75); PLATELET COUNT 237 X10'3 (140-440); RED BLOOD COUNT 2.84 X10'6 (4.70-6.10); RED CELL DISTRIBUTION WIDTH 20.3 % (11.5-14.5)
[2021-11-13 02:49] LABS: ALANINE AMINOTRANSFERASE 20 U/L (12-78); ALBUMIN 2.9 G/DL (3.4-5.0); ALBUMIN/GLOBULIN RATIO 0.8 (1.1-1.5); ALKALINE PHOSPHATASE 65 IU/L (46-116); ANION GAP 9 (8-16); ASPARTATE AMINO TRANSFERASE 25 U/L (10-37); BILIRUBIN,TOTAL 0.7 MG/DL (0.1-1.0); BLOOD UREA NITROGEN 27 MG/DL (7-18); BUN/CREATININE RATIO 20.6 (5.4-32.0); CALCIUM 8.5 MG/DL (8.5-10.1); CHLORIDE 99 MMOL/L (99-107); CREATININE 1.31 MG/DL (0.60-1.10); GLUCOSE 123 MG/DL (70-104); POTASSIUM 3.3 MMOL/L (3.5-5.1); SODIUM 136 MMOL/L (135-145); TOTAL PROTEIN 6.7 G/DL (6.4-8.2); eGFR 53 ML/MIN
[2021-11-13 03:36] LABS: ANISOCYTOSIS 3+; PLATELET ESTIMATE NORMAL
[2021-11-13 03:37] LABS: HYPOCHROMASIA 1+
[2021-11-13 03:39] LABS: SCHISTOCYTES FEW; TARGET CELLS FEW
[2021-11-13] MEDS: DOPamine 400mg/D5W 250ml 250 ML IV SCH (08:07)
[2021-11-13] MEDS: folic acid 0.4mg tablet PO SCH (08:18)
[2021-11-13] MEDS: docusate sod 100mg capsule PO SCH ×2 (08:18→20:26)
[2021-11-13] MEDS: aspirin 81mg tab.chew PO SCH (08:18)
[2021-11-13] MEDS: furosemide 40mg tablet PO SCH (08:18)
[2021-11-13] MEDS: metoprolol succinate 25mg (24-HOUR) SR. Tablet PO SCH (10:30)
[2021-11-13] MEDS: potassium Cl 20mEq/100mL bag 100 ML IV SCH ×2 (10:31→11:26)
[2021-11-13] MEDS: furosemide 20MG tablet PO SCH (14:00)
--- NOTE | 2021-11-13 18:46 | NUR ---
Patient in room CICU 2013. I have received report from ADY Leblanc and had the opportunity to ask questions and assume patient care. Patient is awake and alert in bed, finished with dinner. Patient relates no discomforts or needs at this time.
[2021-11-13] MEDS ORDERED: warfarin 1mg tablet PO ONE (21:00)
[2021-11-14] VITALS (7 sets, daily range): BP systolic 142–169; BP diastolic 74–99
--- NOTE | 2021-11-14 01:08 | NUR ---
Patient seated on edge of bed, mildly agitated, stating "I want to leave" "I want my daughter to speak to the doctor". Nursing staff explained to patient that it was 0100 in the morning and that the doctor would be in to see him later in the morning and that it would be good for him to stay. Patient agreed. Patient relates he is uncomfortable in the bed. Offer a high back chair. Patient assisted to high back chair, covered with warm blankets. Call light in reach. Patient relates this is better.
[2021-11-14] MEDS: DOPamine 400mg/D5W 250ml 250 ML IV SCH (01:23)
--- NOTE | 2021-11-14 01:41 | NUR ---
Problems reprioritized. Patient report given, questions answered & plan of care reviewed with ADY Leiva. Patient to be transfered to Tele with monitor.
[2021-11-14 02:21] LABS: BASOPHILS % (AUTO) 0.4 % (0-1); EOSINOPHILS # (AUTO) 0.2 X10'3 (0-0.9); HEMATOCRIT 24.8 % (42.0-52.0); HEMOGLOBIN 8.1 g/dl (14.0-17.9); LYMPHOCYTES # (AUTO) 2.7 X10'3 (1.1-4.8); LYMPHOCYTES % (AUTO) 32.7 % (21-51); MEAN CORPUSCULAR HEMOGLOBIN 26.6 PG (27.0-31.0); MEAN CORPUSCULAR HGB CONC 32.5 g/dL (33.0-36.5); MEAN PLATELET VOLUME 8.4 FL (7.4-10.4); MONOCYTES # (AUTO) 0.9 X10'3 (0-0.9); MONOCYTES % (AUTO) 11.2 % (2-12); NEUTROPHILS # (AUTO) 4.4 X10'3 (1.8-7.7); NEUTROPHILS % (AUTO) 53.7 % (42-75); PLATELET COUNT 258 X10'3 (140-440); RED BLOOD COUNT 3.02 X10'6 (4.70-6.10); RED CELL DISTRIBUTION WIDTH 20.2 % (11.5-14.5); WHITE BLOOD COUNT 8.2 X10'3 (4.5-11.0)
--- NOTE | 2021-11-14 02:32 | NUR ---
Patient transferred to [facility] via wheelchair, all patients belongings with patient. labels placed on cell phone various exceptionalities teacher, glass case and belongings bag. Bedside update to RN given. Unable to start peripheral IV after 2 attempts, central line in place, saline locked, line secured to right leg.
--- NOTE | 2021-11-14 02:35 | NUR ---
Patient transferred to floor in no apparent distress. Belongings at bedside. Call light within easy reach. All safety measures in place. We will continue to monitor patient
[2021-11-14 02:36] LABS: ALANINE AMINOTRANSFERASE 22 U/L (12-78); ALBUMIN 3.1 G/DL (3.4-5.0); ALBUMIN/GLOBULIN RATIO 0.8 (1.1-1.5); ALKALINE PHOSPHATASE 73 IU/L (46-116); ANION GAP 9 (8-16); ASPARTATE AMINO TRANSFERASE 27 U/L (10-37); BILIRUBIN,TOTAL 0.9 MG/DL (0.1-1.0); BLOOD UREA NITROGEN 21 MG/DL (7-18); BUN/CREATININE RATIO 17.4 (5.4-32.0); CALCIUM 8.4 MG/DL (8.5-10.1); CHLORIDE 98 MMOL/L (99-107); CREATININE 1.21 MG/DL (0.60-1.10); POTASSIUM 3.4 MMOL/L (3.5-5.1); SODIUM 133 MMOL/L (135-145); TOTAL CARBON DIOXIDE 25.7 MMOL/L (24-32); TOTAL PROTEIN 7.2 G/DL (6.4-8.2); eGFR 58 ML/MIN
[2021-11-14 02:37] LABS: GLUCOSE 128 MG/DL (70-104)
[2021-11-14 04:36] LABS: ANISOCYTOSIS 3+; PLATELET ESTIMATE NORMAL
--- NOTE | 2021-11-14 06:47 | NUR ---
Patient in room PCU 3014. I have received report from Jazmine GARSIA and had the opportunity to ask questions and assume patient care.
[2021-11-14] MEDS: furosemide 40mg tablet PO SCH (08:19)
[2021-11-14] MEDS: folic acid 0.4mg tablet PO SCH (08:19)
[2021-11-14] MEDS: docusate sod 100mg capsule PO SCH ×2 (08:20→20:00)
[2021-11-14] MEDS: aspirin 81mg tab.chew PO SCH (08:20)
[2021-11-14] MEDS: metoprolol succinate 25mg (24-HOUR) SR. Tablet PO SCH (08:20)
[2021-11-14] MEDS: furosemide 20MG tablet PO SCH (15:43)
[2021-11-14] MEDS ORDERED: potassium Cl 20 mEq SR tablet PO STA (16:24)
--- NOTE | 2021-11-14 18:23 | NUR ---
Problems reprioritized. Patient report given, questions answered & plan of care reviewed with Erin GARSIA.
[2021-11-14] MEDS ORDERED: warfarin 1mg tablet PO ONE (21:00)
[2021-11-15 06:22] LABS: BASOPHILS % (AUTO) 0.3 % (0-1); EOSINOPHILS # (AUTO) 0.1 X10'3 (0-0.9); EOSINOPHILS % (AUTO) 0.9 % (0-6); HEMATOCRIT 26.8 % (42.0-52.0); HEMOGLOBIN 8.8 g/dl (14.0-17.9); LYMPHOCYTES # (AUTO) 2.2 X10'3 (1.1-4.8); LYMPHOCYTES % (AUTO) 21.9 % (21-51); MEAN CORPUSCULAR HEMOGLOBIN 26.6 PG (27.0-31.0); MEAN CORPUSCULAR VOLUME 80.6 FL (78-98); MONOCYTES # (AUTO) 1.1 X10'3 (0-0.9); MONOCYTES % (AUTO) 11.4 % (2-12); NEUTROPHILS # (AUTO) 6.6 X10'3 (1.8-7.7); NEUTROPHILS % (AUTO) 65.5 % (42-75); PLATELET COUNT 300 X10'3 (140-440); RED BLOOD COUNT 3.32 X10'6 (4.70-6.10); RED CELL DISTRIBUTION WIDTH 20.1 % (11.5-14.5)
--- NOTE | 2021-11-15 06:42 | NUR ---
Problems reprioritized. Patient report given, questions answered & plan of care reviewed with Karla.
[2021-11-15 06:44] LABS: ALANINE AMINOTRANSFERASE 19 U/L (12-78); ALBUMIN/GLOBULIN RATIO 0.7 (1.1-1.5); ALKALINE PHOSPHATASE 73 IU/L (46-116); ANION GAP 6 (8-16); ASPARTATE AMINO TRANSFERASE 22 U/L (10-37); BILIRUBIN,TOTAL 1.2 MG/DL (0.1-1.0); BLOOD UREA NITROGEN 12 MG/DL (7-18); BUN/CREATININE RATIO 12.5 (5.4-32.0); CALCIUM 8.4 MG/DL (8.5-10.1); CHLORIDE 99 MMOL/L (99-107); CREATININE 0.96 MG/DL (0.60-1.10); POTASSIUM 3.3 MMOL/L (3.5-5.1); SODIUM 133 MMOL/L (135-145); TOTAL CARBON DIOXIDE 28.3 MMOL/L (24-32); TOTAL PROTEIN 7.6 G/DL (6.4-8.2); eGFR 75 ML/MIN
[2021-11-15 06:58] LABS: GLUCOSE 131 MG/DL (70-104)
[2021-11-15] MEDS ORDERED: potassium Cl 20 mEq SR tablet PO ONE ×2 (07:50→08:45)
[2021-11-15] MEDS: metoprolol succinate 25mg (24-HOUR) SR. Tablet PO SCH (08:18)
[2021-11-15] MEDS: docusate sod 100mg capsule PO SCH (08:18)
[2021-11-15] MEDS: aspirin 81mg tab.chew PO SCH (08:18)
[2021-11-15] MEDS: furosemide 40mg tablet PO SCH (08:18)
[2021-11-15] MEDS: folic acid 0.4mg tablet PO SCH (08:18)
[2021-11-15 09:20] LABS: ANISOCYTOSIS 3+; HYPOCHROMASIA 2+; PLATELET ESTIMATE NORMAL; POLYCHROMASIA FEW; STOMATOCYTES 1+
[2021-11-15 09:21] LABS: TARGET CELLS FEW
[2021-11-15] MEDS ORDERED: HYDROcodone/acetaminophen 5mg/325mg tablet PO ONE (13:55)
[2021-11-15] MEDS ORDERED: prednisone 10mg tablet PO SCH (13:56)
[2021-11-15] MEDS ORDERED: PRED10TA PO (14:18)
[2021-11-15] MEDS ORDERED: FURO20TA4 PO (14:18)
[2021-11-15] MEDS ORDERED: POTA-82 PO (14:18)
[2021-11-15] MEDS: furosemide 20MG tablet PO SCH (14:18)
[2021-11-15] MEDS ORDERED: ACET-1008 PO (14:19)
--- NOTE | 2021-11-15 16:36 | NUR ---
Page Sent promotional table spacer PAGER ID: [phone] MESSAGE: [id number] RIANNA. PT UNABLE TO SEE PATIENT TODAY. DO YOU WANT TO DC WITHOUT PT EVAL OR HOLD DISCHARGE UNTIL TOMORROW? Becky [phone]
--- NOTE | 2021-11-15 17:45 | NUR ---
Mr Garibay has been assessed as indicated. He has been noted to be both pleasant and cooperative. He has been successfully treated for pain to his left wrist. The area is swollen and tender. Xray taken to day confirms no fracture. He is preparing for DC. He was given 40meq PO potassium today per MD order from 11/14/21. CANDIDA IV acces was established so that the R groin access can be removed. He tolerated the procedure well. Hid daughter has been at the bedside most of the afternoon. He is resting quietly at this time.
--- NOTE | 2021-11-15 18:50 | NUR ---
Mr Gilliam is DC aldo home is driven in a private vehicle by his daughter Ly. IV access was removed R groin access was removed. Peñaloza was removed. He did void 180ml after the Peñaloza was removed. He did ambulate down the jackson with stand by assist and a steady gait. DC instructions and medication were reviewed with Ly. She expressed her comprehension. She states that she will follow up the PCP and arrange for a follow up appointment with a shellfish farming supervisor after she establishes a relationship with one for her father. At the time of DC Mr Gilliam was eager to leave and compliant with the plan to DC
[2021-11-15] MEDS ORDERED: warfarin 3mg tablet PO ONE (21:00)
== END 2021-11-15 18:45 | disposition home or self-care (01) | DRG 425 ==
LOC: ER 23:03 → ED HOLD 11-11 02:17 → PCU 3S 11-11 07:41 → CICU 2S 11-11 17:25 → PCU 3S 11-14 02:28
PROVIDERS: ADMIT Internal Medicine; ATTEND Family Medicine
PROC: 06HY33Z Insertion of Infusion Device into Lower Vein, Percutaneous Approach (ICD-10-PCS; principal; 2021-11-11)
DX: E87.5 Hyperkalemia (principal); R57.9 Shock, unspecified; I50.33 Acute on chronic diastolic (congestive) heart failure; N17.9 Acute kidney failure, unspecified; D68.9 Coagulation defect, unspecified; I24.8 Other forms of acute ischemic heart disease; I48.20 Chronic atrial fibrillation, unspecified; I50.30 Unspecified diastolic (congestive) heart failure; I13.0 Hypertensive heart and chronic kidney disease with heart failure and stage 1 through stage 4 chronic kidney disease, or unspecified chronic kidney disease; E11.22 Type 2 diabetes mellitus with diabetic chronic kidney disease; R31.9 Hematuria, unspecified; T50.995A Adverse effect of other drugs, medicaments and biological substances, initial encounter; E78.00 Pure hypercholesterolemia, unspecified; M19.09 Primary osteoarthritis, other specified site; E87.6 Hypokalemia; R00.1 Bradycardia, unspecified; M25.532 Pain in left wrist; I25.10 Atherosclerotic heart disease of native coronary artery without angina pectoris; N18.9 Chronic kidney disease, unspecified; Z79.01 Long term (current) use of anticoagulants; Z95.1 Presence of aortocoronary bypass graft; Z95.5 Presence of coronary angioplasty implant and graft; Z88.5 Allergy status to narcotic agent; Z79.899 Other long term (current) drug therapy; Y92.89 Other specified places as the place of occurrence of the external cause
CPT/HCPCS: 36000; 36415; 36600; 71045; 73110; 76937; 80053; 82803; 82948; 83735; 83880; 84100; 84145; 84484; 85008; 85018; 85025; 85379; 85384; 85610; 85651; 85730; 86140; 87081; 93005; 94760; 94799; 96360; 99285; G0378; J1265; J1815; J3480; J3490; J7030; J7512

== ENCOUNTER 2021-12-30 14:57 | Emergency (ER) | payer MEDICAID ==
[~2021-12-30] VITALS: Ht 154.9 cm; Wt 75.9 kg
[~2021-12-30 14:57] MED LIST changes: -ASPI-1265 PO; -DILT180C87 PO; -FURO-149 PO; -FURO-150 PO; +FURO20TA4 PO; -LOP12.5T PO; +METO-395 PO; -METO-467 PO; +POTA-82 PO; +PRED10TA PO
[2021-12-30] MEDS ORDERED: CefTRIAXone 2gm/D5W 50ml BAG 50 ML IV ONE ×2 (15:15→16:45)
[2021-12-30] MEDS ORDERED: normal saline 1000ML IV soln IV ONE (15:15)
--- NOTE | 2021-12-30 15:15 | NUR ---
Rocco Pruett at bedside.
[2021-12-30 15:37] LABS: BASOPHILS % (AUTO) 0.3 % (0-1); EOSINOPHILS # (AUTO) 0.1 X10'3 (0-0.9); EOSINOPHILS % (AUTO) 1.1 % (0-6); HEMOGLOBIN 9.2 g/dl (14.0-17.9); LYMPHOCYTES # (AUTO) 2.1 X10'3 (1.1-4.8); LYMPHOCYTES % (AUTO) 26.3 % (21-51); MEAN CORPUSCULAR HEMOGLOBIN 25.4 PG (27.0-31.0); MEAN CORPUSCULAR HGB CONC 32.8 g/dL (33.0-36.5); MEAN CORPUSCULAR VOLUME 77.6 FL (78-98); MONOCYTES # (AUTO) 0.7 X10'3 (0-0.9); MONOCYTES % (AUTO) 8.6 % (2-12); NEUTROPHILS % (AUTO) 63.7 % (42-75); PLATELET COUNT 404 X10'3 (140-440); RED BLOOD COUNT 3.61 X10'6 (4.70-6.10); RED CELL DISTRIBUTION WIDTH 19.3 % (11.5-14.5); WHITE BLOOD COUNT 7.8 X10'3 (4.5-11.0)
--- NOTE | 2021-12-30 15:49 | NUR ---
to/from ct without incident.
[2021-12-30 15:51] LABS: ALANINE AMINOTRANSFERASE 26 U/L (12-78); ALBUMIN 2.7 G/DL (3.4-5.0); ALBUMIN/GLOBULIN RATIO 0.5 (1.1-1.5); ALKALINE PHOSPHATASE 72 IU/L (46-116); ANION GAP 11 (8-16); ASPARTATE AMINO TRANSFERASE 32 U/L (10-37); BILIRUBIN,TOTAL 0.6 MG/DL (0.1-1.0); BLOOD UREA NITROGEN 25 MG/DL (7-18); BUN/CREATININE RATIO 16.2 (5.4-32.0); CALCIUM 8.9 MG/DL (8.5-10.1); CHLORIDE 95 MMOL/L (99-107); CREATININE 1.54 MG/DL (0.60-1.10); GLUCOSE 155 MG/DL (70-104); POTASSIUM 4.1 MMOL/L (3.5-5.1); SODIUM 131 MMOL/L (135-145); TOTAL CARBON DIOXIDE 24.7 MMOL/L (24-32); eGFR 44 ML/MIN
[2021-12-30 15:53] LABS: AMMONIA < 10 UMOL/L (11-32); LACTIC SEPSIS 1.7 MMOL/L (0.4-2.0)
[2021-12-30 15:58] LABS: PLATELET ESTIMATE NORMAL
[2021-12-30 15:59] LABS: ANISOCYTOSIS 2+; ELLIPTOCYTES FEW; MICROCYTOSIS 1+; TARGET CELLS FEW
[2021-12-30 16:00] LABS: LARGE PLATELETS FEW
[2021-12-30 16:20] LABS: CLARITY,URINE SLIGHTLY CLOUDY (Clear); COLOR,URINE YELLOW (Yellow); GLUCOSE, URINE NEGATIVE (Neg); KETONES,URINE NEGATIVE (Neg); LEUKOCYTE ESTERASE ,URINE MODERATE (Neg); NITRITES, URINE NEGATIVE (Neg); OCCULT BLOOD,URINE NEGATIVE (Neg); PROTEIN,URINE NEGATIVE (Neg); UA COLLECTION TYPE CLN CATCH MIDSTREAM; UROBILINOGEN,URINE 0.2 E.U/dL (0.2-1.0)
[2021-12-30 16:30] LABS: BACTERIA,URINE 2+ /HPF (Neg); MUCUS STRANDS FEW /LPF (Neg); RBC,URINE NONE SEEN /HPF (0-2); SQUAMOUS EPITHELIAL CELL,UR FEW /LPF (FEW)
--- NOTE | 2021-12-30 16:57 | NUR ---
DAUGHTER ASKED TO BE CALLED WHEN HER FATHER IS BEING DISCHARGED SO SHE CAN PICK HIM UP.
--- NOTE | 2021-12-30 17:01 | NUR ---
DAUGHTER'S (RENALDO) NUMBER: [phone]
--- NOTE | 2021-12-30 17:02 | NUR ---
WANTS PRESCRIPTION SENT TO [facility] ON [address].
[2021-12-30] MEDS ORDERED: CEPH250T PO (17:04)
[2021-12-30 18:08] VITALS: BP 112/78
--- NOTE | 2021-12-30 18:13 | NUR ---
pt's family member here to transport pt home.
--- NOTE | 2022-01-02 08:51 | NUR ---
Attempted to contact patient at listed number, number was not longer working. Letter sent to listed address. Per Dr. Mcdermott, patient is to D/C keflex and start levaquin 500 mg 1 tab PO QD x7 days for a total of 7 tab 0 refills.
== END 2021-12-30 18:15 | disposition home or self-care (01) ==
LOC: ER 14:57
DX: N39.0 Urinary tract infection, site not specified (principal); E86.0 Dehydration; I11.0 Hypertensive heart disease with heart failure; I50.9 Heart failure, unspecified; E78.00 Pure hypercholesterolemia, unspecified; E11.9 Type 2 diabetes mellitus without complications; Z95.5 Presence of coronary angioplasty implant and graft; Z72.89 Other problems related to lifestyle; Z88.8 Allergy status to other drugs, medicaments and biological substances; Z79.01 Long term (current) use of anticoagulants; Z79.899 Other long term (current) drug therapy
CPT/HCPCS: 36415; 70450; 71045; 80053; 81001; 82140; 83605; 84145; 85008; 85025; 85610; 87040; 87077; 87088; 87186; 93005; 96365; 99285; J0696; J7030

== ENCOUNTER 2022-11-17 13:45 | Emergency (ER) | payer MEDICAID ==
[~2022-11-17] VITALS: Ht 165.1 cm; Wt 72.7 kg
[2022-11-17 14:28] LABS: BASOPHILS % (AUTO) 0.3 % (0-1); EOSINOPHILS # (AUTO) 0.1 X10'3 (0-0.9); EOSINOPHILS % (AUTO) 1.1 % (0-6); HEMATOCRIT 27.5 % (42.0-52.0); HEMOGLOBIN 8.7 g/dl (14.0-17.9); LYMPHOCYTES # (AUTO) 1.8 X10'3 (1.1-4.8); LYMPHOCYTES % (AUTO) 24.1 % (21-51); MEAN CORPUSCULAR HEMOGLOBIN 25.6 PG (27.0-31.0); MEAN CORPUSCULAR HGB CONC 31.7 g/dL (33.0-36.5); MEAN CORPUSCULAR VOLUME 80.9 FL (78-98); MONOCYTES # (AUTO) 0.6 X10'3 (0-0.9); MONOCYTES % (AUTO) 8.3 % (2-12); NEUTROPHILS # (AUTO) 4.9 X10'3 (1.8-7.7); NEUTROPHILS % (AUTO) 66.2 % (42-75); PLATELET COUNT 369 X10'3 (140-440); RED CELL DISTRIBUTION WIDTH 18.2 % (11.5-14.5); WHITE BLOOD COUNT 7.4 X10'3 (4.5-11.0)
[2022-11-17 14:41] LABS: APTT 40 SECONDS (22-32)
[2022-11-17 14:43] LABS: ALANINE AMINOTRANSFERASE 15 U/L (12-78); ALBUMIN 3.5 G/DL (3.4-5.0); ALBUMIN/GLOBULIN RATIO 0.9 (1.1-1.5); ALKALINE PHOSPHATASE 64 IU/L (46-116); ANION GAP 7 (8-16); ASPARTATE AMINO TRANSFERASE 18 U/L (10-37); BILIRUBIN,TOTAL 0.4 MG/DL (0.1-1.0); BLOOD UREA NITROGEN 15 MG/DL (7-18); BUN/CREATININE RATIO 12.3 (5.4-32.0); CALCIUM 9.3 MG/DL (8.5-10.1); CHLORIDE 99 MMOL/L (99-107); CREATININE 1.22 MG/DL (0.60-1.10); GLUCOSE 190 MG/DL (70-104); POTASSIUM 3.8 MMOL/L (3.5-5.1); SODIUM 134 MMOL/L (135-145); TOTAL CARBON DIOXIDE 28.2 MMOL/L (24-32); TOTAL PROTEIN 7.6 G/DL (6.4-8.2); eGFR 57 ML/MIN
--- NOTE | 2022-11-17 14:47 | NUR ---
Received a phone call from Korina GARSIA ([facility] at [facility]). I gave her report on patient's condition, history, and interventions done so far. Stroke Nurse Mi was also at bedside doing neuro assessment of patient.
[2022-11-17] MEDS ORDERED: phytonadione inj. 10 MG in normal saline 100ml IV soln 100 ML IV ONE (15:10)
[2022-11-17] MEDS ORDERED: human prothrombin complex-PCC 500 UNIT/20 ML VIAL IV ONE (15:10)
[2022-11-17] MEDS ORDERED: labetalol 20mg/4ml (5mg/ml) syringe IV ONE (15:50)
--- NOTE | 2022-11-17 15:50 | NUR ---
Reported BP of 165/[address] Santillan. placing orders.
[2022-11-17] MEDS ORDERED: human prothrombin complex-PCC 80 ML IV ONE (16:15)
--- NOTE | 2022-11-17 16:15 | NUR ---
Pt SBP now 130s-140s, informed Dr. Santillan of pts BP status and received VO to hold Labetalol and to administer if SBP>150
[2022-11-17 17:15] VITALS: BP 145/86
--- NOTE | 2022-11-17 17:30 | NUR ---
Report given to Reach RNs Yang. Recent VSs and meds reported to RNs. Pts valuables taken home by pts daughter whom has pts phone.
== END 2022-11-17 17:57 ==
LOC: ER 13:46
DX: I61.9 Nontraumatic intracerebral hemorrhage, unspecified (principal); I25.10 Atherosclerotic heart disease of native coronary artery without angina pectoris; E78.00 Pure hypercholesterolemia, unspecified; I10 Essential (primary) hypertension; E11.9 Type 2 diabetes mellitus without complications; Z95.1 Presence of aortocoronary bypass graft; Z72.89 Other problems related to lifestyle; Z88.6 Allergy status to analgesic agent; Z79.84 Long term (current) use of oral hypoglycemic drugs; Z79.01 Long term (current) use of anticoagulants; Z79.899 Other long term (current) drug therapy
CPT/HCPCS: 36415; 70450; 71045; 80053; 82948; 84484; 85025; 85610; 85730; 93005; 96365; 96368; 96375; 99291; J3430; J3490; J7168